=== PATIENT | female | born 1985 | race Caucasian/White ===

== ENCOUNTER → 2017-08-28 17:38 | Outpatient (REF) | payer BC, SELFPAY ==
[2017-08-28 18:16] LABS: Basophils % 0.6 % (0.1-2.0); Eosinophils % 0.4 % (0.1-12.0); Hematocrit 41.2 % (37.0-47.0); Hemoglobin 13.4 g/dL (12.2-16.2); Lymphocytes # 2.4 K/mm3 (0.7-4.5); Mean Corpuscular HGB Conc 32.5 g/dL (31.8-35.4); Mean Corpuscular Hemoglobin 28.9 pg (27.0-31.2); Mean Corpuscular Volume 88.9 fl (81-99); Mean Platelet Volume 7.3 fl (7.4-10.4); Monocytes # 0.3 K/mm3 (0.1-1.0); Monocytes % 4.8 % (1.7-9.3); Neutrophils % 58.2 % (37.0-80.0); Platelet Count 285 K/mm3 (142-424); Red Blood Count 4.64 M/mm3 (4.20-5.40); Red Cell Distribution Width 12.4 % (11.5-17.5); White Blood Count 6.8 K/mm3 (4.8-10.8)
== END ==
LOC: LAB 17:38
PROVIDERS: Visit Provider Internal Medicine
DX: L60.2 Onychogryphosis (principal)
CPT/HCPCS: 85025

== ENCOUNTER → 2018-07-06 14:26 | Outpatient (CLI) | payer BC, SELFPAY ==
--- NOTE | 2018-07-06 14:34 | CT_ITS ---
CT abdomen pelvis wo con CLINICAL INDICATION: Right flank pain ITS.REASON: PYELONEPHRITIS, MICRO HEMATURIA ORDERING PHYSICIAN: Frandy Manzanares PATIENT AGE: 32 years COMPARISON: 08/12/2011 TECHNIQUE: Axial images obtained with sagittal and coronal reformats. All CT scans at the facility use one or more dose reduction, viz: automated exposure control, ma/kV adjustment per patient size (including targeted exams where dose is matched to indication, i.e. head), or iterative reconstruction technique. PROCEDURE: Oral Contrast: None IV Contrast: None . FINDINGS: No acute finding in the lower chest. The liver, spleen, adrenal glands, and pancreas have an unremarkable unenhanced appearance. There are nonobstructing bilateral renal calculi with the largest stone on the right in the mid polar region at 4 mm and the larger stone on the left in the lower pole 3 mm. No ureteral calculi. No hydronephrosis. Nonspecific nonobstructive bowel gas pattern. No evidence of appendicitis or diverticulitis. No obvious pelvic mass or abnormal fluid collection. There are multiple unopacified bowel loops present within the abdomen/pelvis which could obscure or mimic pathology. No acute bony anomaly. There is mild to moderate lumbar scoliosis convex right measuring 21 degrees. A small bone island is present in the left femoral neck. IMPRESSION: 1. Nonobstructing bilateral nephrolithiasis. 2. Dextroscoliosis of the lumbar spine
== END ==
PROVIDERS: PCP Internal Medicine; Visit Provider Internal Medicine
DX: N12 Tubulo-interstitial nephritis, not specified as acute or chronic (principal); R31.29 Other microscopic hematuria
CPT/HCPCS: 74176

== ENCOUNTER → 2019-01-26 15:00 | Outpatient (CLI) | payer BC, SELFPAY ==
--- NOTE | 2019-01-26 15:06 | XR_ITS ---
XR ankle RT min 3V HISTORY: Posttraumatic pain, lateral pain ITS.REASON: RT ANKLE INJURY, ORDERING PHYSICIAN: Frandy Manzanares PATIENT AGE: 33 years Comparison: None FINDINGS: No fracture or dislocation. No lytic or blastic change. There is normal mineralization.. The joint spaces are well-preserved. No significant degenerative/arthritic changes. No erosive changes evident. IMPRESSION: Negative ankle, no acute finding
== END ==
PROVIDERS: PCP Internal Medicine; Visit Provider Internal Medicine
DX: M25.571 Pain in right ankle and joints of right foot (principal)
CPT/HCPCS: 73610

== ENCOUNTER → 2019-11-22 07:03 | Outpatient (CLI) | payer BC, SELFPAY ==
--- NOTE | 2019-11-22 07:08 | NM_ITS ---
PROCEDURE: NM THYROID IMAGE UPTAKE CLINICAL INDICATION: HYPERTHYROIDISM, THYROIDITIS COMPARISON: No exams were available for comparison TECHNIQUE: 336 microcuries I 123 was administered. FINDINGS: 6 hour uptake was calculated to be 10.5 percent and 24 hour uptake was calculated to be 20.8 percent. These values are within the normal range normal 6 hour uptake is taken to be 3-16 percent and normal 24 hour uptake is taken to be 10-35 percent. Subsequent images demonstrate slight diffuse increased intensity within the inferior right thyroid lobe. Consider correlation with thyroid ultrasound to entirely exclude a hyperfunctioning adenoma in the inferior right thyroid lobe. There is otherwise homogeneous tracer uptake with slight asymmetrical increased cephalo caudad dimension of right thyroid lobe. IMPRESSION: Normal uptake values. Slight increased intense tracer accumulation inferior right thyroid lobe. An underlying hyperfunctioning adenoma is not entirely excluded but felt to be less likely. Correlation with ultrasound is recommended. Dictated by: Oleksandr Roche 11/23/2019 08:53 Electronically signed by Oleksandr Roche in [facility] 11/23/2019 08:53
--- NOTE | 2019-11-22 08:15 | HMH.ITSHM ---
Current Home Medications as stated by this patient Lena Orozco or sales representative publications. []VITARIL METOPROLOL
== END ==
PROVIDERS: PCP Internal Medicine; Visit Provider Internal Medicine
DX: E05.90 Thyrotoxicosis, unspecified without thyrotoxic crisis or storm (principal); E06.9 Thyroiditis, unspecified
CPT/HCPCS: 78014; A9516

== ENCOUNTER 2020-05-03 10:30 | Emergency (ER) | payer BC, SELFPAY ==
[2020-05-03 10:36] VITALS: BP 152/98; PULSE 87; RESP 16; TEMP 36.6; O2SAT 98; BMI 16.9
--- NOTE | 2020-05-03 10:41 | CT_ITS ---
PROCEDURE: CT HEAD/BRAIN WO CON CLINICAL INDICATION: head injury Head injury with headache/pain, contusion, abrasion or hematoma COMPARISON: No exams were available for comparison TECHNIQUE: Axial images obtained. All CT scans at the facility use one or more dose reduction, viz: automated exposure control, ma/kV adjustment per patient size (including targeted exams where dose is matched to indication, i.e. head), or iterative reconstruction technique. FINDINGS: No midline shift, mass effect, intracranial hemorrhage, hydrocephalus, or extra-axial fluid collection is evident. There is mild soft tissue swelling in the left supraorbital region the calvarium has an unremarkable appearance. No mastoid effusion. No sinus air-fluid level. IMPRESSION: No acute intracranial finding Dictated by: Addison Lake MD 05/03/2020 11:19 Addison Lake MD in [facility] 05/03/2020 11:19
[2020-05-03 11:02] VITALS: BP 132/100; PULSE 68; O2SAT 100
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
[2020-05-03 12:08] VITALS: BP 132/90; PULSE 68; RESP 16; TEMP 36.6; O2SAT 100
== END 2020-05-03 12:10 | disposition home or self-care (01) ==
PROVIDERS: Emergency Provider Family Medicine; PCP Internal Medicine
DX: S01.81XA Laceration without foreign body of other part of head, initial encounter (principal); V86.55XA Driver of 3- or 4- wheeled all-terrain vehicle (ATV) injured in nontraffic accident, initial encounter; Y92.018 Other place in single-family (private) house as the place of occurrence of the external cause
CPT/HCPCS: 12001; 70450; 99283

== ENCOUNTER → 2021-05-22 09:46 | Outpatient (CLI) | payer BC, SELFPAY ==
[2021-05-22 10:06] LABS: Basophils # 0.1 K/mm3 (0-0.2); Basophils % 0.9 % (0.1-2.0); Eosinophils # 0.1 K/mm3 (0.0-0.4); Hematocrit 41.6 % (37.0-47.0); Hemoglobin 13.3 g/dL (12.2-16.2); Lymphocytes # 1.6 K/mm3 (0.7-4.5); Lymphocytes % 29.8 % (10-50); Mean Corpuscular HGB Conc 32.1 g/dL (31.8-35.4); Mean Corpuscular Volume 93.4 fl (81-99); Monocytes # 0.3 K/mm3 (0.1-1.0); Monocytes % 6.2 % (1.7-9.3); Neutrophils # 3.3 K/mm3 (1.8-7.8); Neutrophils % 62.1 % (37.0-80.0); Platelet Count 318 K/mm3 (142-424); Red Blood Count 4.45 M/mm3 (4.20-5.40); Red Cell Distribution Width 12.3 % (11.5-17.5); White Blood Count 5.3 K/mm3 (4.8-10.8)
--- NOTE | 2021-05-22 10:07 | ECG_ITS ---
APPROVED REPORT Exam: Resting ECG HR:55 bpm ECG Measurements Heart Rate 55 AXES SD 136 P 43 QRSd 86 QRS 80 QT 390 T 84 QTc 373 Conclusion Sinus bradycardia Incomplete RBBB Otherwise a normal ekg Electronically signed by : Frandy Manzanares MD 06/05/2021 16:07:14
[2021-05-22 10:20] LABS: Alanine Aminotransferase 14 U/L (12-78); Albumin Level 4.6 g/dl (3.5-5.0); Albumin/Globulin Ratio 1.6 (1.1-1.8); Alkaline Phosphatase 53 U/L (38-126); Anion Gap 11.1 mEq/L (5-15); Aspartate Amino Transferase 25 U/L (14-36); Blood Urea Nitrogen 11 mg/dl (7-17); Calcium 9.4 mg/dl (8.4-10.2); Carbon Dioxide 28 mmol/L (22.0-30.0); Chloride 104 mmol/L (98-107); Estimated Glomerular Filt Rate 114 ml/min (>60); GFR (African American) 138 ML/MIN (>60); Globulin 2.9 g/dL (1.3-3.2); Glucose 76 mg/dl (74-100); Potassium 4.1 mmoL/L (3.5-5.1); Sodium 139 mmol/L (136-145); Total Protein,Serum 7.5 g/dl (6.3-8.2)
[2021-05-22 10:35] LABS: Troponin I < 0.01 ng/ml (0.00-0.034)
[2021-05-22 10:39] LABS: T4 (Thyroxine) 7.9 ug/dl (5.53-11.0)
[2021-05-22 10:44] LABS: Free T4 (Free Thyroxine) 0.79 ng/dl (0.78-2.19)
[2021-05-22 10:53] LABS: Thyroid Stimulating Hormone 1.15 uIU/mL (0.465-4.68)
== END ==
PROVIDERS: Visit Provider Internal Medicine
DX: R07.9 Chest pain, unspecified (principal); R00.2 Palpitations; Z86.16 Personal history of COVID-19
CPT/HCPCS: 36415; 80053; 84436; 84439; 84443; 84484; 85025; 85378; 93005

== ENCOUNTER → 2021-06-10 07:54 | Outpatient (CLI) | payer BC, SELFPAY ==
--- NOTE | 2021-06-10 08:03 | CA_ITS ---
APPROVED REPORT EXAM: Comprehensive 2D, Doppler, and color-flow Echocardiogram Memorial Marker Designer: Bety Abel, RCS, RVS Ht: 5 ft 6 in Wt: 105lbs BSA: 1.52 BP: 126/78 mmHg Indications: CP, Palpitations 2D Dimensions Aortic Root 2.25 cm F: 2.7 - 3.3 LA Volume 25.80 mL Left Atrium 1.96 cm F: 2.7 - 3.8 LA Volume Index 16.97 mL/m2 (M/F) 16-34 LVOT 1.59 cm (M/F) 1.5-2.5 M-Mode Dimensions RVDd 2.07 cm (0.9-2.6) LA Diam 2.69 cm (1.9-4.0) LVDd 4.21 cm (3.5-5.7) Ao Diam 2.51 cm (2.0-3.7) IVSd 0.54 cm (0.6-1.1) PWd 0.59 cm (0.6-1.1) EPSs 0.16 cm EDV (Teich) 79.00 mL TAPSE 2.25 (<1.7) LV Diastology E Decel Time 207.00 (160-240 msec) E/A Ratio 1.83 MED E' 15.60 (< 7 cm/sec) MED A' 6.80 cm/s E'/MED E' Ratio 6.89 (>14) LAT E' 20.10 (<10 cm/sec) LAT A' 7.60 cm/s E/LAT E' Ratio 5.35 (>14) Aortic Valve LVOT Max 98.00 (70-110 cm/s) LVOT VTI 21.85 cm AoV Peak Esdras. 133.00 (50-130 cm/s) AO Peak GR. 7.10 mmHg AO Mean GR. 3.70 (<5 mmHg) AO VTI 27.84 (18-25 cm) SAVANNAH (VTI) 1.56 (2.5-4.5 cm2) Mitral Valve MV A Velocity 59.00 (40-130 cm/s) E/A Ratio 1.83 MV Decel. Time 207.00 (160-240 ms) Pulmonary Valve PV Peak Velocity 83.00 (50-150 cm/s) Tricuspid Valve TR P. Velocity 147.00 cm/s RAP Estimate 10.00 mmHg RVSP 18.60 mmHg Left Ventricle Left atrium is normal size, left ventricle is normal size, there is no concentric left ventricular hypertrophy, visually estimated ejection fraction 55% with no regional wall motion abnormality, diastolic parameters are within normal range. Right Ventricle Right atrium and right ventricle are normal size and contractility. Aortic Valve Aortic valve is grossly normal, there is no aortic stenosis or aortic insufficiency. Mitral Valve Mitral valve is grossly normal, there is trace mitral regurgitation. Tricuspid Valve Tricuspid grossly normal, there is no significant tricuspid regurgitation noted. Pulmonic Valve Pulmonic valve is poorly visualized. Great Vessels Aortic root is normal size. Inferior vena cava is normal size with normal inspiratory collapse. Pericardium No significant pericardial effusion noted. Conclusion 1. Normal left ventricular size, preserved left ventricular systolic function, visually estimated ejection fraction 55% with no regional wall motion abnormality, diastolic parameters are within normal range. 2. Trace mitral regurgitation. 3. No significant pericardial effusion noted. 4. Inferior vena cava is normal size with normal inspiratory collapse. Electronically signed by : Kelton Alcantara MD 06/10/2021 21:28:19
== END ==
PROVIDERS: PCP Internal Medicine; Visit Provider Internal Medicine
DX: R07.9 Chest pain, unspecified (principal); R00.2 Palpitations
CPT/HCPCS: 93306

== ENCOUNTER → 2021-09-10 22:52 | Outpatient (CLI) | payer BC, SELFPAY ==
[2021-09-10 23:12] LABS: Basophils # 0.1 K/mm3 (0-0.2); Basophils % 1.4 % (0.1-2.0); Eosinophils # 0.1 K/mm3 (0.0-0.4); Eosinophils % 1.3 % (0.1-12.0); Hematocrit 42.7 % (37.0-47.0); Hemoglobin 13.9 g/dL (12.2-16.2); Lymphocytes # 1.9 K/mm3 (0.7-4.5); Lymphocytes % 44.6 % (10-50); Mean Corpuscular HGB Conc 32.5 g/dL (31.8-35.4); Mean Corpuscular Hemoglobin 30.5 pg (27.0-31.2); Mean Corpuscular Volume 93.9 fl (81-99); Mean Platelet Volume 8.6 fl (7.4-10.4); Monocytes # 0.3 K/mm3 (0.1-1.0); Monocytes % 7.9 % (1.7-9.3); Neutrophils # 1.9 K/mm3 (1.8-7.8); Neutrophils % 44.8 % (37.0-80.0); Platelet Count 263 K/mm3 (142-424); Red Blood Count 4.55 M/mm3 (4.20-5.40); Red Cell Distribution Width 12.2 % (11.5-17.5); White Blood Count 4.2 K/mm3 (4.8-10.8)
== END ==
PROVIDERS: Visit Provider Internal Medicine
DX: J02.9 Acute pharyngitis, unspecified (principal); R53.83 Other fatigue
CPT/HCPCS: 85025

== ENCOUNTER → 2022-02-05 16:19 | Outpatient (CLI) | payer BC, SELFPAY ==
[2022-02-05 16:41] LABS: Basophils # 0.2 K/mm3 (0-0.2); Basophils % 2.8 % (0.1-2.0); Eosinophils # 0.1 K/mm3 (0.0-0.4); Eosinophils % 1.8 % (0.1-12.0); Hematocrit 40.2 % (37.0-47.0); Hemoglobin 13.6 g/dL (12.2-16.2); Lymphocytes # 1.7 K/mm3 (0.7-4.5); Lymphocytes % 30.7 % (10-50); Mean Corpuscular HGB Conc 33.8 g/dL (31.8-35.4); Mean Corpuscular Hemoglobin 30.1 pg (27.0-31.2); Mean Corpuscular Volume 89.2 fl (81-99); Mean Platelet Volume 7.7 fl (7.4-10.4); Monocytes # 0.5 K/mm3 (0.1-1.0); Monocytes % 7.9 % (1.7-9.3); Neutrophils # 3.2 K/mm3 (1.8-7.8); Neutrophils % 56.8 % (37.0-80.0); Platelet Count 270 K/mm3 (142-424); Red Cell Distribution Width 12.7 % (11.5-17.5); White Blood Count 5.7 K/mm3 (4.8-10.8)
[2022-02-05 17:18] LABS: Alanine Aminotransferase 16 U/L (12-78)
== END ==
PROVIDERS: PCP Internal Medicine; Visit Provider Internal Medicine
DX: B35.1 Tinea unguium (principal)
CPT/HCPCS: 84460; 85025

== ENCOUNTER 2024-01-08 19:27 | Emergency (ER) | payer OTHER, SELFPAY ==
--- NOTE | 2024-01-08 19:29 | ED_ITS ---
Discharge Plan Disposition Patient Disposition: Home, Self-Care Condition: Good Prescriptions Prescriptions: New amoxicillin 875 mg tablet 875 mg PO BID Qty: 20 0RF prednisone 20 mg tablet 20 mg PO BID Qty: 10 0RF No Action metoprolol tartrate 25 MG tablet 12.5 mg PO BID Qty: 30 0RF hydroxyzine pamoate 25 MG capsule 25 mg PO Q6H PRN (Reason: Anxiety) Qty: 30 0RF Referrals Follow up/Referrals: Frandy Manzanares MD [Primary Care Provider] - See instructions Clinical Impressions Clinical Impression: Otitis media Instructions Patient Instructions: DI for Otitis Media (Middle Ear Infection)-Child Discharge ED Provider: Adriana Cleveland [facility] HPI General Stated complaint: sore throat Time Seen by Provider: 01/08/24 20:04 History of Present Illness Provider Complaint: Sore throat, left ear pain X 1 week. No fever. Allergy meds have not helped. Onset (ago): week(s) (1) Relieving factors: none Exacerbating factors: none Associated symptoms: denies other symptoms Treatments prior to arrival: none Related Data Previous Rx's Medication Instructions Recorded hydroxyzine pamoate 25 mg capsule 25 mg PO Q6H PRN Anxiety #30 caps 11/09/19 metoprolol tartrate 25 mg tablet 12.5 mg (1/2 x 25 mg) PO BID #30 11/09/19 tabs amoxicillin 875 mg tablet 875 mg PO BID #20 tabs 01/08/24 prednisone 20 mg tablet 20 mg PO BID #10 tabs 01/08/24 Allergies Allergy/AdvReac Type Severity Reaction Status Date / Time No Known Allergies Allergy Verified 10/05/19 21:10 [facility] Disclaimer: The information contained in this section may have been updated after the patient was seen, as this information can be updated by other users. Social History Smoking Status: Unknown if ever smoked alcohol intake: never current occupational status: other Travel in the last 8 weeks: None household members: other housing: other ROS Obtained: Yes All systems reviewed & no additional complaints except as documented ENT Ears, Nose, Mouth, and Throat: Reports otalgia and Reports sore throat Physical Exam General General appearance: alert and in no apparent distress Head Head exam: atraumatic, normocephalic and normal inspection Eye Eye exam: Present normal appearance, PERRL and EOMI ENT ENT exam: Present normal exam, normal oropharynx, mucous membranes moist and normal external ear exam Expanded ENT Exam TM/Canal exam: Left TM: erythema Throat exam: Present tonsillar erythema and tonsillomegaly Neck Neck exam: Present normal inspection, full ROM and trachea midline; Absent meningismus or lymphadenopathy Chest Chest inspection: Present normal inspection and symmetric chest wall rise; Absent tenderness Respiratory Respiratory exam: Present normal lung sounds bilaterally; Absent respiratory distress Cardiovascular Cardiovascular exam: Present regular rate and normal rhythm; Absent JVD Abdominal Exam Abdominal exam: Present soft and normal bowel sounds; Absent distention, tenderness or guarding Extremities Exam Extremities exam: Present normal inspection, full ROM and normal capillary refill; Absent calf tenderness Back Exam Back exam: Present normal inspection; Absent tenderness Neurological Exam Neurological exam: Present alert and oriented X3 Psychiatric Psychiatric exam: Present normal affect and normal mood Skin Skin exam: Present warm, dry, intact and normal color Lymphatic Lymphatic Findings: no adenopathy Medical Decision Making Darion Inquiry Pt receiving controlled substance: No Lab Data Lab results reviewed: Yes I reviewed the patient's lab results.
[2024-01-08 19:55] VITALS: BP 133/95; PULSE 72; RESP 18; TEMP 36.7; O2SAT 100; BMI 18.8
[2024-01-08 20:19] LABS: UTC Strep Screen (Rapid) Negative (Negative)
[2024-01-08 20:25] VITALS: BP 133/95; PULSE 72; RESP 18; TEMP 36.7; O2SAT 100
== END 2024-01-08 20:20 | disposition home or self-care (01) ==
PROVIDERS: Emergency Provider Physician Assistant; PCP Internal Medicine
DX: H66.92 Otitis media, unspecified, left ear (principal); R07.0 Pain in throat
CPT/HCPCS: 87880; 96372; 99204; 99212; G0463

== ENCOUNTER 2024-06-05 11:42 | Emergency (ER) | payer OTHER, SELFPAY ==
[2024-06-05 12:20] VITALS: BP 125/86; PULSE 115; RESP 20; TEMP 37.1; O2SAT 98; BMI 17.9
--- NOTE | 2024-06-05 12:37 | EXP.UTC ---
Discharge Plan Disposition Patient Disposition: Home, Self-Care Condition: Good Prescriptions Prescriptions: New [id number]-[id number]-MI [Bromfed DM] 2-30-10 mg/5 mL syrup 10 ml PO Q6H PRN (Reason: cold symptoms) Qty: 200 0RF ondansetron 4 mg tablet,disintegrating 4 mg PO Q8H PRN (Reason: nausea and vomiting) Qty: 10 0RF Referrals Follow up/Referrals: Frandy Manzanares MD [Primary Care Provider] - See instructions Activity Restrictions/Add. Instructions Additional Instructions/Restrictions: *Monitor Temp, Over the counter Motrin or Tylenol as directed/as needed Tylenol every 4 hours and Motrin every 6 hours (as long as your family doctor has told you that you can take it) for fever or pain. and straight to ER if unable to lower temp less than 101.0 after medication given *Warm salt water gargles may help to soothe the throat *Throat Lozenges? *Warm fluids like tea with honey may help to soothe the throat? *Sleep elevated *Humidifier/Vaporizer Drink extra fluids with and between meals. If you have difficulty drinking, try very small amounts of water or suck on ice chips. ? Avoid fruit juices, as these do not replace minerals and can actually increase diarrhea. ? Children and adults can use sports drinks to replenish electrolytes. Younger children and infants should use products formulated for children, like oral rehydration solutions. ? Eat food in small amounts and let your stomach recover. ? Get lots of rest. You may feel tired or weak. ? No greasy or fried foods for the next 24-48 hours BRAT diet Bananas Rice Apples and [place] ? Make sure to drink plenty of liquids ? Return if needed ? Straight to ER if any life threatening symptoms ? Zofran as prescribed ? You was given an outpatient order for diarrhea panel, please collect specimen and bring back to outpatient lab then call back to the [facility] or follow up with family doctor for results Follow up IMMEDIATELY for new or worsening symptoms or no Noticeable improvement over the next 48-72 hours. 911 for difficulty breathing or swallowing You were tested for today for Upper Respiratory Panel with COVID19 your test result should be back in the next 24hours, you may check your results on the [facility] [employer] [facility] Portal Clinical Impressions Clinical Impression: Acute viral syndrome Instructions Patient Instructions: DI for Viral Syndrome, Diarrhea, DI for Nausea -- Adult Print Language Print Language: Prydeinig Discharge ED Provider: Kamla Sy [facility] HPI General Stated complaint: headache, fever, bodyaches Mode of Arrival: Ambulatory Source of Information: Patient Limitations: No Limitations Time Seen by Provider: 06/05/24 12:37 Description of Symptoms (Recalled from Triage Doc. by RN): PATIENT C/O FEVER, HEADACHE, VOMITING, DIARRHEA, BODY ACHES, AND CHEST CONGESTION SINCE THURSDAY EVENING HEENT Symptoms (Recalled from RN notes): Yes Resp Symptoms (Recalled from RN notes): No Skin Symptoms (Recalled from RN notes): No MS Symptoms (Recalled from RN notes): No Functional Status (Recalled from RN notes): WNL History of Present Illness Provider Complaint: Patient states that she started feeling bad Thursday with fever, chills, body aches, headache, diarrhea and dry cough States fever was the highest on the first night but since then has been low grade around 100.0 States today she is having some chest congestion and still feeling achy all over so she came in to get checked Related Data Previous Rx's ?Medication ?Instructions ?Recorded tzxklwuqekuildv-zhxrzrksucqpyfr-YI 10 ml PO Q6H PRN cold symptoms 06/05/24 2 mg-30 mg-10 mg/5 mL oral syrup #200 mL (Bromfed DM) ondansetron 4 mg disintegrating 4 mg PO Q8H PRN nausea and 06/05/24 tablet vomiting #10 tabs Allergies Allergy/AdvReac Type Severity Reaction Status Date / Time No Known Allergies Allergy Verified 01/08/24 20:12 Worker's Comp Is this a Worker's Comp case?: No [facility] Disclaimer: The information contained in this section may have been updated after the patient was seen, as this information can be updated by other users. Medical History (Updated 06/05/24 @ 12:43 by Kamla Sy APRN) Urinary tract infection Social History Smoking Status: Unknown if ever smoked alcohol intake: never current occupational status: other Travel in the last 8 weeks: None household members: other housing: other ROS Obtained: Yes All systems reviewed & no additional complaints except as documented and Yes Systems reviewed as appropriate & no additional complaints except as documented Constitutional Constitutional: Reports system reviewed and no additional complaints, except as documented, Reports as per HPI, Reports body ache, Reports chills, Reports fever(s) and Reports headache(s) ENT Ears, Nose, Mouth, and Throat: Reports system reviewed and no additional complaints, except as documented, Reports as per HPI, Reports headache(s), Reports nasal congestion and Reports nasal discharge Cardiovascular Cardiovascular: Reports system reviewed and no additional complaints, except as documented, Reports as per HPI, Denies chest pain, Denies lightheadedness and Denies palpitations Respiratory Respiratory: Reports system reviewed and no additional complaints, except as documented, Reports as per HPI, Reports chest congestion and Reports cough Gastrointestinal Gastrointestingal: Reports system reviewed and no additional complaints, except as documented, as per HPI, diarrhea and nausea; Denies abdominal pain, cramping or vomiting Genitourinary Female Genitourinary: Reports system reviewed and no additional complaints, except as documented and Reports as per HPI Neurologic Neurologic: Reports headache(s) Endocrine Endocrine: Denies palpitations Physical Exam General General appearance: alert and in no apparent distress ENT ENT exam: Present mucous membranes moist Expanded ENT Exam Nose exam: Absent sinus tenderness Throat exam: Present normal inspection Chest Chest inspection: Present normal inspection and symmetric chest wall rise Respiratory Respiratory exam: Present normal lung sounds bilaterally; Absent respiratory distress or wheezes Cardiovascular Cardiovascular exam: Present regular rate, normal rhythm and tachycardia Abdominal Exam Abdominal exam: Present soft and normal bowel sounds; Absent distention or tenderness Neurological Exam Neurological exam: Present alert, oriented X3 and normal gait Medical Decision Making Medical Records Screening: Per USPSTF and CDC recommendations, given the prevalence of disease in our region, it is our hospital?s policy to screen for HIV and viral Hepatitis for all patients aged 18 and over and those with ongoing risk factors. Darion Inquiry Pt receiving controlled substance: No Darion was queried for this patient: No Vital Signs: 06/05/24 12:20 Temperature 98.8 F Temperature Source Oral Pulse Rate [Left Brachial] 115 H Respiratory Rate 20 Blood Pressure [Left Arm] 125/86 Blood Pressure Mean [Left Arm] 99 Blood Pressure Source [Left Arm] Automatic Cuff Blood Pressure Position [Left Arm] Sitting 02 Sat by Pulse Oximetry 98 Oxygen Delivery Method Room Air Lab Data Lab results reviewed: Yes I reviewed the patient's lab results.
[2024-06-05 12:46] LABS: UTC Influenza A Antigen Negative (Negative); UTC Influenza B Antigen Negative (Negative)
[2024-06-05 12:49] VITALS: BP 125/86; PULSE 115; RESP 20; TEMP 37.1; O2SAT 98
[2024-06-05 13:02] LABS: Adenovirus,PCR Not Detected (NotDetected); Bordetella Pertussis Not Detected (NotDetected); Chlamydophila Pneumoniae, PCR Not Detected (NotDetected); Coronavirus 19, PCR Not Detected (NotDetected); Coronavirus 229E Not Detected (NotDetected); Coronavirus NL63 Not Detected (NotDetected); Coronavirus OC43 Not Detected (NotDetected); Coronovirus HKU1,PCR Not Detected (NotDetected); Human Metapneumovirus Not Detected (NotDetected); Influenza A, PCR Not Detected (NotDetected); Influenza AH1, 2009 Not Detected (NotDetected); Influenza AH1, PCR Not Detected (NotDetected); Influenza AH3,PCR Not Detected (NotDetected); Influenza B, PCR Not Detected (NotDetected); Mycoplasma Pneumoniae, PCR Not Detected (NotDetected); Parainfluenza 1, PCR Not Detected (NotDetected); Parainfluenza 2, PCR Not Detected (NotDetected); Parainfluenza 3, PCR Not Detected (NotDetected); Parainfluenza 4, PCR Not Detected (NotDetected); Respiratory Syncytial Virus Not Detected (NotDetected); Rhinovirus/Enterovirus Not Detected (NotDetected)
== END 2024-06-05 12:54 | disposition home or self-care (01) ==
PROVIDERS: Emergency Provider Nurse Practitioner; PCP Internal Medicine
DX: B34.9 Viral infection, unspecified (principal)
CPT/HCPCS: 87265; 87486; 87581; 87632; 87635; 87804; 99213; G0381

== ENCOUNTER → 2024-06-06 14:43 | Outpatient (REF) | payer OTHER, SELFPAY ==
[2024-06-06 14:49] LABS: Adenovirus F 40/41, stool Not Detected (NotDetected); Astrovirus Not Detected (NotDetected); Clostridium Difficile A/B, PCR Not Detected (NotDetected); Cryptosporidium Not Detected (NotDetected); Cyclospora Cayetanesis Not Detected (NotDetected); Entamoeba histolytica Not Detected (NotDetected); Enteroaggregative E coli Not Detected (NotDetected); Enteropathogenic E coli Not Detected (NotDetected); Enterotoxigenic E coli Not Detected (NotDetected); Giardia lamblia Not Detected (NotDetected); Norovirus Not Detected (NotDetected); Plesimonas Shigalloides, PCR Not Detected (NotDetected); Rotavirus A Not Detected (NotDetected); Salmonella, PCR Not Detected (NotDetected); Sapovirus Not Detected (NotDetected); Shiga-like toxin E coli Not Detected (NotDetected); Shigella Enterovasive E coli Not Detected (NotDetected); Vibrio Cholerae Not Detected (NotDetected); Vibrio, PCR Not Detected (NotDetected); Yersinia Entercolitica, PCR Not Detected (NotDetected)
[2024-06-06 19:05] LABS: Campylobacter Detected (NotDetected)
--- NOTE | 2024-06-06 19:07 | PC.NURSE ---
Patricia VELAZQUEZ APRN NOTIFIED OF PATIENT'S DIARRHEA PANEL RESULTS AT THIS TIME
--- NOTE | 2024-06-06 19:37 | PC.NURSE ---
PATIENT NOTIFIED OF DIARRHEA PANEL RESULTS AT THIS TIME. PATIENT ADVISED TO INCREASE FLUIDS AND TO FOLLOW-UP WITH PCP IF DIARRHEA PERSISTS LONGER THAN 1 WEEK. PATIENT VERBALIZED UNDERSTANDING
== END ==
LOC: LAB 14:43
PROVIDERS: Visit Provider Nurse Practitioner
DX: R19.7 Diarrhea, unspecified (principal)
CPT/HCPCS: 87506

== ENCOUNTER 2024-08-09 12:48 | Emergency (ER) | payer OTHER, SELFPAY ==
[2024-08-09 13:10] VITALS: BP 129/86; PULSE 71; RESP 17; TEMP 36.7; O2SAT 100; BMI 18.8
--- NOTE | 2024-08-09 13:19 | ED_ITS ---
Discharge Plan Disposition Patient Disposition: Home, Self-Care Condition: Good Referrals Follow up/Referrals: Frandy Manzanares MD [Primary Care Provider] - See instructions Activity Restrictions/Add. Instructions Additional Instructions/Restrictions: *Monitor Temp, Over the counter Motrin or Tylenol as directed/as needed Tylenol every 4 hours and Motrin every 6 hours (as long as your family doctor has told you that you can take it) for fever or pain. and straight to ER if unable to lower temp less than 101.0 after medication given *Warm salt water gargles may help to soothe the throat *Throat Lozenges? *Warm fluids like tea with honey may help to soothe the throat? *Sleep elevated *Humidifier/Vaporizer Your throat swab was sent for culture. Those results are typically sent to your primary care. Be sure to follow up in 2-3 days with your family doctor/primary care physician if no improvement so they can review those result and treat if necessary. If you don?t have a primary care doctor, I recommend you get one but in the mean time, you will have to return to a walk in clinic Follow up IMMEDIATELY for new or worsening symptoms or no Noticeable improvement over the next 48-72 hours. 911 for difficulty breathing or swallowi ng Clinical Impressions Clinical Impression: Sore throat (viral) Instructions Patient Instructions: Sore Throat Print Language Print Language: Sinhala Discharge ED Provider: Kamla Sy [facility] [place] General Stated complaint: sore throat Mode of Arrival: Ambulatory Source of Information: Patient Limitations: No Limitations Time Seen by Provider: 08/09/24 13:19 Description of Symptoms (Recalled from Triage Doc. by RN): PATIENT C/O SORE THROAT AND LETHARGY SINCE YESTERDAY HEENT Symptoms (Recalled from RN notes): Yes Resp Symptoms (Recalled from RN notes): No Skin Symptoms (Recalled from RN notes): No MS Symptoms (Recalled from RN notes): No Functional Status (Recalled from RN notes): WNL History of Present Illness Provider Complaint: Patient states that she started yesterday with sore throat, feeling fatigued and drained States that she wanted to get checked with the holidays coming worried she may have strep throat Related Data Allergies Allergy/AdvReac Type Severity Reaction Status Date / Time No Known Allergies Allergy Verified 06/06/24 15:05 Worker's Comp Is this a Worker's Comp case?: No [facility] Disclaimer: The information contained in this section may have been updated after the patient was seen, as this information can be updated by other users. Medical History Urinary tract infection Social History Smoking Status: Unknown if ever smoked alcohol intake: never current occupational status: other Travel in the last 8 weeks: None household members: other housing: other Have you lived/traveled outside US in past 30 days?: No Contact w/someone who lives/traveled outside US past 30 days?: No Exposure to someone with infectious disease in past 14 days?: No Do you have a fever (greater than 100.4 F or 38 C)?: No Have you tested positive for COVID-19: No Exposed to someone with COVID-19 in past 14 days?: No Do you have a sore throat?: Yes Do you have a cough?: No Do you have any weakness?: No Do you have any diarrhea?: No Are you experiencing any unusual bleeding?: No Do you have any muscle aches/pain?: No Do you have any abdominal pain?: No Are you experiencing loss of taste or smell?: No ROS Obtained: Yes All systems reviewed & no additional complaints except as documented and Yes Systems reviewed as appropriate & no additional complaints except as documented Constitutional Constitutional: Reports system reviewed and no additional complaints, except as documented, Reports as per HPI, Denies body ache, Denies chills, Reports fatigue, Denies fever(s) and Reports lethargy ENT Ears, Nose, Mouth, and Throat: Reports system reviewed and no additional complaints, except as documented, Reports as per HPI, Denies nasal congestion, Denies nasal discharge and Reports sore throat Cardiovascular Cardiovascular: Reports system reviewed and no additional complaints, except as documented and Reports as per HPI Respiratory Respiratory: Reports system reviewed and no additional complaints, except as documented and Reports as per HPI Endocrine Endocrine: Reports fatigue Physical Exam General General appearance: alert and in no apparent distress ENT ENT exam: Present mucous membranes moist Expanded ENT Exam Nose exam: Absent sinus tenderness Throat exam: Present other (Mild pharyngeal erythema noted ) Respiratory Respiratory exam: Present normal lung sounds bilaterally; Absent respiratory distress or wheezes Cardiovascular Cardiovascular exam: Present regular rate, normal rhythm and normal heart sounds Abdominal Exam Abdominal exam: Present soft and normal bowel sounds; Absent distention or tenderness Neurological Exam Neurological exam: Present alert, oriented X3 and normal gait Medical Decision Making Medical Records Screening: Per USPSTF and CDC recommendations, given the prevalence of disease in our region, it is our hospital?s policy to screen for HIV and viral Hepatitis for all patients aged 18 and over and those with ongoing risk factors. Dar[place] Inquiry Pt receiving controlled substance: No [place] was queried for this patient: No Vital Signs: 08/09/24 13:10 Temperature 98.1 F Temperature Source Oral Pulse Rate [Left Brachial] 71 Respiratory Rate 17 Blood Pressure [Left Arm] 129/86 Blood Pressure Mean [Left Arm] 100 Blood Pressure Source [Left Arm] Automatic Cuff Blood Pressure Position [Left Arm] Sitting 02 Sat by Pulse Oximetry 100 Oxygen Delivery Method Room Air Lab Data Lab results reviewed: Yes I reviewed the patient's lab results.
[2024-08-09 13:30] VITALS: BP 129/86; PULSE 71; RESP 17; TEMP 36.7; O2SAT 100
[2024-08-09 13:31] LABS: UTC Strep Screen (Rapid) Negative (Negative)
== END 2024-08-09 13:33 | disposition home or self-care (01) ==
PROVIDERS: Emergency Provider Nurse Practitioner; PCP Internal Medicine
DX: J02.9 Acute pharyngitis, unspecified (principal); R53.83 Other fatigue
CPT/HCPCS: 87880; 99212; G0381

== ENCOUNTER 2025-01-05 12:17 | Outpatient (CLI) | payer OTHER, SELFPAY ==
[2025-01-05 11:06] LABS: Basophils # 0.1 K/mm3 (0-0.2); Basophils % 0.9 % (0.1-2.0); Eosinophils # 0.1 Kmm3 (0.0-0.4); Eosinophils % 1.1 % (0.1-12.0); Hemoglobin 13.8 g/dL (12.2-16.2); Immature Granulocytes # 0.02 10^3uL; Immature Granulocytes % 0.4 %; Lymphocytes # 1.8 K/mm3 (0.7-4.5); Lymphocytes % 32.3 % (10-50); Mean Corpuscular HGB Conc 32.9 g/dL (31.8-35.4); Mean Corpuscular Hemoglobin 28.9 pg (27.0-31.2); Mean Corpuscular Volume 88.1 fl (81-99); Mean Platelet Volume 9.2 fl (7.4-10.4); Monocytes # 0.6 K/mm3 (0.1-1.0); Neutrophils % 54.3 % (37.0-80.0); Nucleated Red Blood Cells # 0 10^3/uL; Nucleated Red Blood Cells % 0 %; Platelet Count 290 K/mm3 (142-424); Red Blood Count 4.77 M/mm3 (4.20-5.40); Red Cell Distribution Width-SD 38.5 fL; White Blood Count 5.5 K/mm3 (4.8-10.8)
== END 2025-01-05 23:59 | disposition home or self-care (01) ==
LOC: LAB.DROPOF 12:17
PROVIDERS: PCP Internal Medicine; Visit Provider Internal Medicine
DX: R10.2 Pelvic and perineal pain (principal); R10.32 Left lower quadrant pain; R10.31 Right lower quadrant pain
CPT/HCPCS: 85025

== ENCOUNTER 2025-01-05 13:45 | Outpatient (CLI) | payer OTHER, SELFPAY ==
--- NOTE | 2025-01-05 14:00 | CT_ITS ---
FINAL REPORT TECHNIQUE: Axial images through the abdomen and pelvis were performed without contrast. This study was performed with techniques to keep radiation doses as low as reasonably achievable, (ALARA). Individualized dose reduction techniques using automated exposure control or adjustment of mA and/or kV according to the patient's size were employed. CLINICAL HISTORY: Diffuse lower abdominal pain since Thursday FINDINGS: Abdomen: The lung bases are clear. The liver parenchyma is homogeneous. The gallbladder is present. The pancreas and adrenals are unremarkable. There are multiple small bilateral nonobstructing stones measuring up to 3 mm. There are calcified granulomas in the spleen. Pelvis: The appendix is normal. The urinary bladder is incompletely distended. Uterus is present, lies eccentric to the left. There is a 25 degree thoracolumbar scoliosis convex to the right. There is no pelvic mass or inflammation. IMPRESSION: Bilateral nephrolithiasis. Reviewed, Interpreted and Dictated by Reinier Márquez MD Transcribed by Jennie Carbajal Authenticated and . [facility]
== END 2025-01-05 23:59 | disposition home or self-care (01) ==
LOC: RAD 13:46
PROVIDERS: PCP Internal Medicine; Visit Provider Internal Medicine
DX: N20.0 Calculus of kidney (principal); M41.85 Other forms of scoliosis, thoracolumbar region; D73.89 Other diseases of spleen
CPT/HCPCS: 74176

== ENCOUNTER 2025-06-14 14:18 | Outpatient (CLI) | payer OTHER, SELFPAY ==
--- NOTE | 2025-06-14 14:22 | XR_ITS ---
FINAL REPORT CLINICAL HISTORY: Hemoptysis, bronchitis..cough since thursday COMPARISON: None FINDINGS: PA and lateral views of the chest were obtained. No acute pulmonary density is evident. There is no evidence of effusion or other pleural disease. The mediastinum has a normal appearance. There is moderate S shaped scoliosis of the thoracolumbar spine. The cardiac silhouette is unremarkable. IMPRESSION: Unremarkable chest exam. Reviewed, Interpreted and Dictated by Patricia Jennings MD Transcribed by Janie Hunter Authenticated and [facility]
--- OUTSIDE RECORDS SUMMARY | 2025-06-14 15:10 | XMS_ITS | Encounter Summary ---
Author Organization [facility] Address [address] [place] [address] Care Team Providers Care Public Works Director Name Role Phone Frandy Manzanares MD Primary Care Provider [phone] Encounter Details Date Type Department Care Team (Late st Contact Info) Description 03/28/2025 Results Follow-Up [facility] [address] [place] [address] Rebecca Watson, SLOT FLOORMAN [address] [facility] [address] [place] [address] Social History Tobacco Use Types Packs/Day Years Used Date Smoking Tobacco: Never Smokeless Tobacco: Never Alcohol Use Standard Drinks/Week Comments Not Currently 0 (1 standard drink = 0.6 oz pur e alcohol) Couple drinks a month Overall Financial Resource Strain (CARDIA) Answe r Date Recorded How hard is it for you to pa y for the very basics like food, housing, medical care, and heating? Not hard at all 06/28/2020 [facility] Occupat ional Health - Occupational Stress Questionnaire Answer Date Recorded Do you feel stress - tense, restless, nervous, or anxious, or unable to sleep at night because your mind is troubled all the time - these days? Not at all 06/28/2020 Exercise Vital Sign Answer Date Recorde d On average, how many days pe r week do you engage in moderate to strenuous exercise (like a brisk walk)? 0 days 06/28/2020 On average, how many minutes do you engage in exercise at this level? 0 min 06/28/2020 Hunger Vital Sign Answer Date Recorded Worried About Running Out of Food in the Last Ye ar Not on file 06/28/2020 Within the past 12 months, t he food you bought just didn't last and you didn't have money to get more. Never true 06/28/2020 PRAPARE - Transportation Answer Date Re corded In the past 12 months, has l ack of transportation kept you from medical appointments or from getting medications? No 12/2019 In the past 12 months, has l ack of transportation kept you from meetings, work, or from getting things needed for daily living? 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
--- OUTSIDE RECORDS SUMMARY | 2025-06-14 15:10 | XMS_ITS | Clinical Summary ---
Author Organization [facility] Address [address] [id number] Care Team Providers Care General Internist And Physician Leader Name Role Phone Frandy Manzanares MD Primary Care Provider [phone] Allergies No known active allergies Medications fluconazole (DIFLUCAN) 150 MG tablet Take 1 tablet by mouth As Needed (yeast). Take one tablet now and repeat in 3 days 2 tablet 03/28/2025 Active Active Problems No known active problems Encounters Date Type Department Care Team Description 03/28/2025 Results Follow-Up [facility] [address] [place] [address] Rebecca Watson APRN 03/17/2025 10:00 AM EDT Office Visit [facility] [address] [place] [address] Rebecca Watson, OVER HAULER HELPER Pap test, as part of routine gynecological examination (Primary Dx); Encounter for screening mammogram for malignant neoplasm of breast; Women's annual routine gynecological examination 03/17/2025 Travel from Last 3 Months Family History Medical History Relation Name Comments No Known Problems Other FAMILY Breast cancer Neg Hx Colon cancer Neg Hx Ovarian cancer Neg Hx Uterine cancer Neg Hx Relation Name Status Comments Other FAMILY Social History Tobacco Use Types Packs/Day Years Used Date Smoking Tobacco: Never Smokeless Tobacco: Never Tobacco Cessation:Counseling Given: Not Answered Alcohol Use Standard Drinks/Week Comments Not Currently 0 (1 standard drink = 0.6 oz pur e alcohol) Couple drinks a month Overall Financial Resource Strain (CARDIA) Answe r Date Recorded How hard is it for you to pa y for the very basics like food, housing, medical care, and heating? Not hard at all 06/28/2020 [facility] [place] of Occupat ional Health - Occupational Stress [...] file Not on file Not on file Last Filed Vital Signs Vital Sign Reading Time Taken Comments Blood Pressure 110/80 03/17/2025 9:54 AM EDT Pulse - - Temperature 36.7 C (98.1 F) 06/28/2020 1:47 PM EST Respiratory Rate - - Oxygen Saturation - - Inhaled Oxygen Concentration - - Weight 54 kg (119 lb) 03/17/2025 9:54 AM EDT Height 167.6 cm (5' 5.98 ) 03/17/2025 9:54 AM ED T Body Mass Index 19.22 03/17/2025 9:54 AM EDT Plan of Treatment Health Maintenance Due Date Last Done Comments TDAP/TD VACCINES (1 - Tdap) 2004 HEPATITIS C SCREENING 05/31/2020 ANNUAL PHYSICAL 06/28/2021 06/28/2020 INFLUENZA VACCINE 03/24/2025 Annual Gynecologic Pelvic an d Breast Exam 03/18/2026 03/17/2025 PAP SMEAR 03/17/2028 03/17/2025, 06/03/2022, 07/03/2020 Pneumococcal Vaccine 0-49 Aged Out No longer eligible based on patient's age to complete this topic Procedures Procedure Name Priority Date/Time Associated Diagnosis Comments LIQUID-BASED PAP SMEAR WITH HPV GENOTYPING REGARDLESS OF INTERPRETATION, [facility] ([facility]) Routine 03/17/2025 11:49 AM EDT Pap test, as part of routine gynecological examination from Last 3 Months Results * LIQUID-BASED PAP SMEAR WITH HPV GENOTYPING REGARDLESS OF INTERPRETATION (LINDA,COR,MAD) (03/17/2025 11:49 AM EDT) Reference Lab Report FINAL C [facility] DEVELOPER CYTOLOGY REPORT ---- DIAGNOSIS: Negative for intraepithelial lesion or malignancy Multiple factors can influence accuracy of Pap tests; therefore, screening at regular intervals is necessary for early cancer detection. C-Comments FUNGAL ORGANISMS MORPHOLOGICALLY CONSISTENT WITH CIARRA SPECIES ARE PRESENT. ---- Adequacy SATISFACTORY FOR EVALUATION Transformation zone is present. Source CERVICAL/ENDOCERVI TYREL LMP None provided CLINICAL HISTORY: Routine The pap smear is a screening test with limited sensitivity, and false negative tests results can occur. ThinPrep Pap imagined by [employer]. Screened by ISA LAU (AS[facility]) Aptima HPV: Negative The Aptima HPV assay is an in vitro nucleic acid amplification test for the qualitative detection of E6/E7 viral messenger RNA from 14 high risk types of HPV in cervical specimens. The high risk HPV types detected include: 16, 18, 31, 33, 35, 39, 45, 51, 52, 56, 58, 59, 66 68 03/28/2025 12:38 PM EDT [facility] ThinPrep Vial Cervix uteri structure / Unknown Collection / Unknown 03/17/2025 11:49 AM EDT 03/17/2025 11:50 AM EDT Rebecca Haq Shirley OVER HAULER HELPER PATHOLOGY/CYTOLOGY ORDERA BLES Final Result [facility]
[address] [place] [address], from Last 3 Months Insurance [facility] Care Teams General Internist And Physician Leader Relationship Specialty Start Date End Date Frandy Manzanares MD [address] [facility] [address] [place] [address] PCP - General Internal Medicine 06/28/20
--- OUTSIDE RECORDS SUMMARY | 2025-06-14 15:11 | XMS_ITS | Data Portability ---
Author Organization [facility] KEN Munguia [place] Address [address] [place] [address] Care Team Providers Care Electrical Maintenance Technician Name Role Phone PADMINI GALLEGOS Primary Care Provider [phone] Assessment No assessment recorded. Plan of Treatment Reminders Order Date Submit Date Provider Last Modified By Organization Details Last Modified Time Details Appointments None record ed. Lab None record ed. Referral None record ed. Procedures None record ed. Surgeries None record ed. Imaging None record ed. Medication Orders None record ed. Patient TargetsNo targets recorded. Patient Instructions Encounter Date Encounter Id Patient Instructions Last Modified By Organization Details Last Modified Time 01/24/2019 [id number] 1. Taper allergy injections to every 3 weeks 2. Zatador eyedrops recommended as needed 3. Continue using Mucinex D as needed 4. Use otc Nasacort Nasal spray and oral anthistamine as needed 5. F/u in November 2019 - [email or web address] Not available 01/24/2019 12:32:45 Reason for Referral None Reported. Problems Name Problem SNOMED Code Status Onset Date Resolution Date Notes Provider Name and Address Organization Details Recorded Time Allergic rhinitis caused by pollen 65296975 Active 2014 From Automated Load;Provi ray: Leah Dallas;Stat us: Active Not Available [facility] 6 07:40:37 Nasal congestio n 96467589 Active 2014 From Automated Load;Provi ray: Leah Dallas;Stat us: Active Not Available [facility] 6 07:40:37 Deviated nasal septum 332201555 Active 2014 From Automated Load;Provi ray: Leah Dallas;Stat us: Active Not Available [facility] 6 07:40:37 Hypertrop hy of nasal turbinate s 71192782 Active 2014 From Automated Load;Provi ray: Leah Dallas;Stat us: Active Not Available [facility] 6 07:40:37 Urinary tract infectiou s disease 13707886 Active 2015 From Automated Load;Provi ray: Sebas Manzo;Statu s: Active Not Available [facility] 6 07:40:37 Problem Notes None recorded. Procedures Surgical History Date Name Laterality Status Provider Name and Address Organization Details Recorded Time 9 Allergy Injection completed Arianna Minix [facility] 03/21/2019 11:16:43 9 Allergy Injection completed Ioana Celena [facility] 03/02/2019 15:30:37 9 Allergy Injection completed Raejean Perraut [facility] 01/24/2019 10:59:16 9 Allergy Injection completed Raejean Perraut [facility] 12/31/2018 15:22:09 9 Vial Preparation completed Arianna Minix [facility] 12/28/2018 11:53:42 9 Allergy Injection completed ejean Perraut [facility] 12/17/2018 12:36:17 9 Allergy Injection completed Raejean Perraut [facility] 11/26/2018 16:21:23 9 Allergy Injection completed Raejean Perraut [facility] 10/21/2018 14:12:27 9 Allergy Injection completed Raejean Perraut [facility] 10/08/2018 14:50:45 9 Allergy Injection completed Arianna Minix [facility] 09/22/2018 12:04:02 9 Allergy Injection completed Arianna Minix [facility] 09/08/2018 12:09:45 9 Allergy Injection completed Ioana Celena [facility] 08/25/2018 13:13:50 8 Allergy Injection completed Raejean Perraut [facility] 08/13/2018 12:32:12 8 Allergy Injection completed Raejean Perraut [facility] 08/02/2018 12:11:18 8 Allergy Injection completed Ioana Celena [facility] 07/19/2018 12:34:26 8 Allergy Injection completed Ioana Celena [facility] 07/05/2018 12:38:22 8 Allergy Injection completed Arianna Minix [facility] 06/21/2018 15:02:12 8 Allergy Injection completed Ioana Celena [facility] 06/10/2018 08:44:52 8 Vial Preparation completed Ioana Celena [facility] 06/08/2018 15:15:25 8 Allergy Injection completed Arianna Minix [facility] 05/26/2018 14:01:45 8 Allergy Injection completed Arianna Minix [facility] 05/12/2018 14:23:10 8 Allergy Injection completed Ioana Celena [facility] 04/28/2018 15:20:01 8 Allergy Injection completed Arianna Minix [facility] 04/16/2018 12:29:49 8 Allergy Injection completed Arianna Minix [facility] 04/02/2018 10:14:17 8 Allergy Injection completed Raejean Perraut [facility] 03/19/2018 12:29:58 8 Allergy Injection completed Arianna Minix [facility] 03/01/2018 12:21:22 8 Allergy Injection completed Raejean Perraut [facility] 02/11/2018 12:47:57 8 Allergy Injection completed Arianna Minix [facility] 01/28/2018 13:10:59 8 Allergy Injection completed Arianna Minix [facility] 01/14/2018 13:08:07 8 Allergy Injection completed Ioana Celena [facility] 01/01/2018 16:06:42 8 Allergy Injection completed Raejean Perraut [facility] 12/22/2017 12:25:38 8 Allergy Injection completed Arianna Minix [facility] 12/10/2017 12:29:06 8 Vial Preparation completed Ioana Celena [facility] 12/08/2017 12:02:14 8 Allergy Injection completed Raejean Perraut [facility] 12/03/2017 12:26:25 8 Allergy Injection completed Raejean Perraut [facility] 11/26/2017 12:12:04 8 Allergy Injection completed Airanna Minix [facility] 11/19/2017 13:04:22 8 Allergy Injection completed Ioana Celena [facility] 11/11/2017 12:07:34 8 Allergy Injection completed Raejean Perraut [facility] 11/05/2017 16:14:13 7 Allergy Injection completed Ioana Celena [facility] 06/10/2017 11:30:01 7 Vial Preparation completed Ioana Celena [facility] 06/09/2017 14:38:06 7 Allergy Injection completed Raejean Perraut [facility] 04/24/2017 12:46:44 7 Allergy Injection completed Raejean Perraut [facility] 04/14/2017 10:20:12 7 Allergy Injection completed Raejean Perraut [facility] 04/07/2017 08:44:04 7 Allergy Injection completed Arianna Minix [facility] 04/01/2017 12:17:49 7 Allergy Injection completed Arianna Minix [facility] 03/26/2017 08:49:30 7 Vial Preparation completed Arianna Minix [facility] 03/17/2017 10:31:13 7 Allergy Injection completed Arianna Minix [facility] [facility] 03/17/2017 09:01:34 7 Allergy Injection completed Ioana Celena [facility] 03/03/2017 09:07:41 7 Allergy Injection completed Arianna Minix [facility] 02/26/2017 08:57:51 7 Allergy Injection completed Arianna Minix [facility] 02/17/2017 08:36:14 7 Allergy Injection completed Raejean Perraut [facility] 02/12/2017 12:42:11 7 Allergy Injection completed Ioana Celena [facility] 01/27/2017 08:36:57 7 Allergy Injection completed Arianna Minix [facility] 01/22/2017 08:22:06 7 Allergy Injection completed Raejean Perraut [facility] 01/15/2017 15:32:40 7 Allergy Injection completed Arianna Minix [facility] 12/30/2016 09:06:18 7 Allergy Injection completed Arianna Minix [facility] 12/23/2016 08:42:04 7 Allergy Injection completed Raejean Perraut [facility] 12/16/2016 08:40:27 7 Allergy Injection completed Ioana Celena [facility] 12/11/2016 08:50:57 7 Vial Preparation completed Arianna Minix [facility] 12/02/2016 11:53:43 7 Allergy Injection completed Raejean Perraut [facility] 11/27/2016 08:51:08 7 Allergy Injection completed Arianna Minix [facility] 11/18/2016 08:38:35 7 Allergy Injection completed Arianna Minix [facility] 11/11/2016 08:38:43 7 Allergy Injection completed Raejean Perraut [facility] 11/04/2016 08:39:36 7 Allergy Injection completed Arianna Minix [facility] 10/30/2016 08:41:17 7 Allergy Injection completed Raejean Perraut [facility] 10/21/2016 08:34:01 7 Allergy Injection completed Ioana Celena [facility] 10/14/2016 08:30:03 7 Allergy Injection completed Ioana Celena [facility] 10/07/2016 08:29:14 7 Allergy Injection completed Arianna Minix [facility] 09/30/2016 08:28:38 7 Allergy Injection completed Raejean Perraut [facility] 09/22/2016 13:31:34 7 Vial Preparation completed Dallas Samuelraut [facility] 09/09/2016 14:04:25 7 Allergy Injection completed Ioana Celena [facility] 09/08/2016 12:24:16 6 Allergy Injection completed Arianna Minix [facility] 08/12/2016 08:39:33 6 Allergy Injection completed Ioana Celena [facility] 08/05/2016 10:14:43 5 Repair of nasal septum completed Felix Zepeda [facility] 09/22/2016 15:34:06 0 Other completed [facility] 07/14/2018 16:25:51 6 [place] Teeth Extraction completed [facility] 07/14/2018 16:26:20 Imaging Results None recorded. Procedure Notes None recorded. Medical Equipment None Reported. Allergies No known drug allergies Medications Name Sig Start Date Stop Date Status Note LastModified by Organization Details LastModified Time Tussin DM 10 mg-100 mg/5 mL oral syrup active Not Available Not Available Not Available promethaz ine-DM 6.25 mg-15 mg/5 mL oral syrup 11/02 completed Not Available Not Available Not Available prednison e 10 mg tablet active Not Available Not Available Not Available azithromy aric 250 mg tablet active Not Available Not Available No t Available sulfameth oxazole 400 mg-trimet hoprim 80 mg tablet 01/24 completed Not Available Not Available Not Available promethaz ine 12.5 mg tablet 11/02 completed Not Available Not Available Not Available ciproflox acin 250 mg tablet active Not Available Not Available No t Available ciproflox acin 500 mg tablet 01/24 completed Not Available Not Available Not Available sulfameth oxazole 800 mg-trimet hoprim 160 mg tablet 11/02 completed Not Available Not Available Not Available oxycodone -acetamin ophen 5 mg-325 mg tablet 11/02 completed Not Available Not Available Not Available terbinafi ne HCl 250 mg tablet active Not Available Not Available Not Available cephalexi n 500 mg capsule 01/24 completed Not Available Not Available Not Available oseltamiv ir 75 mg capsule active Not Available Not Available Not Available methylpre dnisolone 4 mg tablets in a dose pack 11/02 completed Not Available Not Available Not Available cefdinir 300 mg capsule 11/02 completed Not Available Not Available Not Available fluticaso ne propionat e 50 mcg/actua tion nasal spray,dolores pension Two times a day 11/02 completed Instruct ions: 2 sprays each nostril BID, angling the tip of the applicat or towards the top of the ear on the same side.;Fr equency: bid;Medi cation Descript ion: fluticas one nasal; Dosage:2 sprays; Route:na charlotte; refills: 11; Quantity :1 spray Not Available Not Available Not Available amoxicill in 500 mg-potass ium clavulana te 125 mg tablet active Not Available Not Available Not Available hydroxyzi ne pamoate 25 mg capsule active Not Available Not Available Not Available neomycin- polymyxin -hydrocor t 3.5 mg-10,000 unit/mL-1 % ear drops,dolores p 11/02 completed Not Available Not Available Not Available Ortho Tri-Cycle n LO (28) 0.18 mg/0.215 mg/0.25 mg-25 mcg tablet 01/24 completed Medicati on Descript ion: ethinyl estradio l-norges timate; Route:or al; refills: 0 Not Available Not Available Not Available Tri-Sprin peña (28) 0.18 mg(7)/0.2 15 mg(7)/0.2 5 mg(7)-0.0 35 mg tablet active Not Available Not Available Not Available metoprolo l tartrate 25 mg tablet active Not Available Not Available Not Available Mucinex D 60 mg-600 mg tablet,ex tended release 11/02 completed Not Available Not Available Not Available promethaz ine 11/02 completed Medicati on Descript ion: prometha zine; refills: 0 Not Available Not Available Not Available Cephalexi n Monohydra te 11/02 completed Medicati on Descript ion: cephalex in; Route:or al; refills: 0 Not Available Not Available Not Available Xyzal 5 mg tablet Daily 11/02 completed Duration : 30 days;Leonard quency: daily;Me dication Descript ion: levoceti rizine; Dosage:1 ; Route:or al; refills: 12; Quantity :30 tablet Not Available Not Available Not Available EpiPen 2-Tonny 0.3 mg/0.3 mL injection , auto-inje ctor As Directed 2015 active Duration : 30 days;Leonard quency: as direct.; Alt Frequenc y: prn;Medi cation Descript ion: epinephr ine; Dosage:a s directed ; Route:in jectable ; refills: 12; Quantity :1 kit Not Available Not Available Not Available Vitals Date Recorded Body height Body mass index (BMI) Body weight Body temperature Heart rate Systolic And Diastolic Provider Name and Address Organization Details Last Updated DateTime 9 167.64 cm 17.3 kg/m2 09812.7 8 g 98.1 [degF] 55 /min 125/74 mm[Hg] Avril Gonzalez [facility] 9 10:28:32 Social History Question Answer Notes LastModified by Organizat ion Details LastModified Time Tobacco Smoking Status Never Smoker Felix remy [facility] 09/22/2016 15:33:40 Marital Status Informatio n not available 07/14/2018 What Was The Date Of Your Most Recent Tobacco Screening? 01/24/2019 Information n ot available 10/11/2019 Sex: Unknown Functional Status Question Answer Note LastModified by Organizat ion Details LastModified Time What is your level of alcohol consumption? 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 Family History Relationship Description Onset Age of this Age Resolved Age Notes LastModified by Organization Details LastModified Time Father No current problems or disability asalva Not available 09/22 15:33:33 Mother No current problems or disability asalva Not available 09/22 15:33:33 Medical History Condition Response Anesthesia Complications N Cancer N Allergies/Hayfever Diabetes N Bleeding Disorder N Hypertension N Gynecological HistoryNo gynecological history recorded. Obstetrics History GPAL:G 0 P 0 0 0 0 Past Encounters Encounter ID Performer Location Encounter Start Date Encounter Closed Date Diagnosis/Indication Diagnosis SNOMED-CT Code Diagnosis ICD10 Code Diagnosis IMO Codes Diagnosis Note [id number] MD KILEY LIMA [facility] [address] [place] [id number] 08/05/2016 08:48:19 08/05/2016 09:14:12 [id number] MD KILEY BRASHER [facility] [address] [place] [address] 08/12/2016 08:25:01 08/12/2016 08:41:42 [id number] MD KILEY MOE [facility] [address] [place] [id number] 09/08/2016 12:11:15 09/08/2016 12:24:59 [id number] MD KILEY TRONCOSO III [facility] [address] [place] [address] 09/09/2016 12:31:29 09/09/2016 14:33:22 [id number] MD KILEY LÓPEZ [facility] [address] [place] [address] 09/22/2016 12:30:00 09/22/2016 14:40:27 [id number] MD KILEY LÓPEZ [facility] [address] [place] [address] 09/22/2016 14:53:59 09/22/2016 16:33:00 Allergic rhinitis caused by pollen 77949211 J30.1 on weekly ; will go to qowk on vial#1 and continue escalating vial #2 Hypertroph y of nasal turbinates 35528308 J34.3 status post Septoplast y, Repair Left Alar Stenosis (closed), Bilateral SMR Inferior Turbinates Deviated nasal septum 12 1599171 J34.2 status post Septoplast y, Repair Left Alar Stenosis (closed), Bilateral SMR Inferior Turbinates Dysfunctio n of eustachian tube 61840985 H69.93 [id number] MD KILEY BRASHER [facility] [address] [place] [address] 09/30/2016 08:20:21 09/30/2016 08:29:13 [id number] MD KILEY BRASHER [facility] [address] [place] [address] 10/07/2016 08:20:55 10/07/2016 08:32:53 [id number] MD KILEY BRASHER [facility] [address] [place] [address] 10/14/2016 08:19:32 10/14/2016 08:30:55 [id number] MD KILEY BRASHER [facility] [address] [place] [address] 10/21/2016 08:23:39 10/21/2016 08:34:51 [id number] MD KILEY LÓPEZ [facility] [address] [place] [address] 10/30/2016 08:32:12 10/30/2016 08:42:03 [id number] MD KILEY BRASHER [address] [address] [place] [address] 11/04/2016 08:30:02 11/04/2016 08:40:27 [id number] MD KILEY BRASHER [address] [address] [place] [address] 11/11/2016 08:29:21 11/11/2016 08:39:34 [id number] MD KILEY BRASHER [address] [place] [address] 11/18/2016 08:30:54 11/18/2016 08:39:41 [id number] MD KILEY MOE [address] [place] [address] 11/27/2016 08:36:57 11/27/2016 08:51:55 [id number] MD KILEY BRASHER [address] [place] [address] 12/02/2016 09:33:41 12/02/2016 11:54:30 [id number] MD KILEY MOE [address] [place] [address] 12/11/2016 08:21:37 12/11/2016 08:53:14 [id number] MD KILEY BRASHER [address] [place] [address] 12/16/2016 08:22:06 12/16/2016 08:41:18 [id number] MD KILEY BRASHER [address] [place] [address] 12/23/2016 08:29:57 12/23/2016 08:42:55 [id number] MD KILEY BRASHER [address] [place] [address] 12/30/2016 08:47:14 12/30/2016 09:07:09 [id number] MD KILEY MOE [facility]NT [address] [place] [address] 01/15/2017 15:22:52 01/15/2017 15:34:44 [id number] MD KILEY BRASHER [address] [address] [place] [address] 01/22/2017 08:19:03 01/22/2017 08:22:42 [id number] MD KILEY BRASHER [address] [address] [place] [address] 01/27/2017 08:19:18 01/27/2017 08:38:42 [id number] MD KILEY MOE [facility] [address] [place] [address] 02/12/2017 12:23:09 02/12/2017 12:43:07 [id number] MD KILEY BRASHER [address] [address] [place] [address] 02/17/2017 08:30:54 02/17/2017 08:36:49 [id number] MD KILEY MOE [address] [address] [place] [address] 02/26/2017 08:35:59 02/26/2017 08:59:05 [id number] MD KILEY BRASHER [facility] [address] [place] [address] 03/03/2017 08:35:31 03/03/2017 09:08:46 [id number] MD KILEY BRASHER [address] [address] [place] [address] 03/17/2017 08:27:58 03/17/2017 09:02:18 [id number] MD KILEY BRASHER [address] [address] [place] [address] 03/17/2017 08:54:04 03/17/2017 10:31:55 [id number] ABHIJIT YOUNG [address] [address] [place] [address] 03/26/2017 08:30:40 03/26/2017 08:53:57 [id number] MD KILEY LIMA [facility]NT [address] [place] [address] 04/01/2017 12:03:26 04/01/2017 12:18:22 [id number] MD KILEY BRASHER [address] [address] [place] [address] 04/07/2017 08:35:43 04/07/2017 08:45:12 [id number] MD KILEY BRASHER [address] [address] [place] [address] 04/14/2017 10:06:32 04/14/2017 10:21:02 [id number] ABHIJIT YOUNG [address]NT [address] [place] [address] 04/24/2017 12:31:43 04/24/2017 12:47:56 [id number] MD KILEY BRASHER [address] [place] [address] 06/09/2017 09:13:59 06/09/2017 14:39:00 [id number] MD KILEY LIMA [address] [place] [address] 06/10/2017 11:21:46 06/10/2017 11:31:11 [id number] MD KILEY LÓPEZ [address] [place] [address] 11/02/2017 15:07:03 11/02/2017 16:19:47 Allergic rhinitis caused by pollen 70757379 J30.1 -MQT 01/17/15= class III reaction to dust, class III- reaction to grasses, and class III reaction to weeds -started allergy injections 01/2015 -decrease allergy shots to every 3 weeks 10/2017 Hypertroph y of nasal turbinates 38173425 J34.3 status post Septoplast y, Repair Left Alar Stenosis (closed), Bilateral SMR Inferior Turbinates Deviated nasal septum 12 8443051 J34.2 status post Septoplast y, Repair Left Alar Stenosis (closed), Bilateral SMR Inferior Turbinates Dysfunctio n of eustachian tube 53261207 H69.93 [id number] MD KILEY MOE [facility]NT [address] [place] [address] 11/05/2017 16:01:22 11/05/2017 16:15:44 [id number] MD KILEY LIMA [facility]NT [address] [place] [address] 11/11/2017 12:03:31 11/11/2017 12:08:17 [id number] MD KILEY MOE [facility]NT [address] [place] [address] 11/19/2017 12:17:35 11/19/2017 13:06:47 [id number] MD KILEY MOE [address] [place] [address] 11/26/2017 12:06:37 11/26/2017 12:12:57 [id number] MD KILEY MOE [address] [place] [address] 12/03/2017 11:56:23 12/03/2017 12:27:12 [id number] MD KILEY BRASHER [facility]NT [address] [place] [address] 12/08/2017 08:49:22 12/08/2017 12:02:52 [id number] MD KILEY LÓPEZ ENT [address] [place] [address] 12/10/2017 12:01:10 12/10/2017 12:29:46 [id number] MD KILEY TRONCOSO III ENT [address] [place] [address] 12/22/2017 12:00:03 12/22/2017 12:26:28 [id number] MD KILEY TRONCOSO III [facility] [address] [place] [address] 01/01/2018 15:43:54 01/01/2018 16:07:52 [id number] MD KILEY OME [facility]NT [address] [place] [address] 01/14/2018 12:59:05 01/14/2018 13:08:51 [id number] MD KILEY MOE ENT [address] [place] [address] 01/28/2018 12:51:50 01/28/2018 13:12:45 [id number] MD KILEY MOE ENT [address] [place] [address] 02/11/2018 12:40:53 02/11/2018 12:48:38 [id number] MD KILEY LÓPEZ ENT [address] [place] [address] 03/01/2018 12:16:00 03/01/2018 12:22:01 [id number] MALINDA DILLON APRN [place] [facility] [address] [place] [address] 03/19/2018 12:23:02 03/19/2018 12:31:16 [id number] MD KILEY TRONCOSO III [facility] [address] [place] [address] 04/02/2018 10:09:14 04/02/2018 10:14:57 [id number] IRVING ANDERSON III, [place] [facility] [address] [place] [address] 04/16/2018 12:28:47 04/16/2018 12:30:55 [id number] MD KILEY LIMA [facility]NT [address] [place] [address] 04/28/2018 15:07:54 04/28/2018 15:22:24 [id number] MD KIELY LIMA [facility]NT [address] [place] [address] 05/12/2018 14:14:41 05/12/2018 14:23:47 [id number] MD KILEY LÓPEZ [address] [place] [place] [address] 05/26/2018 13:45:31 05/26/2018 14:02:21 [id number] MD KILEY BRASHER ENT [address] [place] [address] 7 06/08/2018 13:04:09 06/08/2018 16:39:46 [id number] MD KILEY MOE [address] [place] [address] 7 06/10/2018 08:22:31 06/10/2018 09:26:34 [id number] MD KILEY LÓPEZ [address] [place] [address] 7 06/21/2018 14:55:18 06/21/2018 15:02:56 [id number] MD KILEY MOE [address] 7 07/05/2018 12:28:11 07/05/2018 12:39:23 [id number] RICKY CHARLES MD [facility] [address] [place] [address] 07/14/2018 15:39:40 07/14/2018 16:28:52 Urolithiasis [id number] N20.9 Follow-up in 3 months in [place] with a KUB [id number] MD KILEY LÓPEZ ENT [address] [place] [address] 07/19/2018 12:16:53 07/19/2018 12:34:59 [id number] MD KILEY LÓPEZ ENT [address] [place] [address] 08/02/2018 12:04:36 08/02/2018 12:16:03 [id number] MD KILEY TRONCOSO III [address] [place] [address] 08/13/2018 12:10:38 08/13/2018 12:33:26 [id number] MD KILEY LIMA [address] [place] [address] 08/25/2018 11:58:58 08/25/2018 14:16:33 [id number] MD KILEY LIMA ENT [address] [place] [address] 09/08/2018 12:04:48 09/08/2018 12:10:20 [id number] MD KILEY LIMA [address] [place] [address] 09/22/2018 11:57:00 09/22/2018 12:04:35 [id number] MD KILEY TRONCOSO III [address] [place] [address] 10/08/2018 14:44:01 10/08/2018 14:51:24 [id number] MONY JESSIKA, MD [place] [facility] [address] [place] [address] 10/21/2018 13:59:45 10/21/2018 14:14:55 [id number] MD KILEY TRONCOSO III ENT [address] [place] [address] 11/26/2018 16:14:42 11/26/2018 16:22:04 [id number] BRANDON DHILLON APRN [place] [facility] [address] [place] [address] 12/17/2018 12:29:52 12/17/2018 12:36:56 [id number] MD KILEY BRASHER ENT [address] [place] [address] 12/28/2018 09:04:49 12/28/2018 11:56:27 [id number] MD KILEY TRONCOSO III ENT [address] [place] [address] 12/31/2018 15:03:24 12/31/2018 15:22:51 [id number] MD KILEY LÓPEZ ENT [address] [place] [address] 01/24/2019 10:18:01 01/24/2019 13:44:59 Allergic rhinitis caused by pollen [id number] J30.1 -MQT 01/17/15= class III reaction to dust, class III- reaction to grasses, and class III reaction to weeds -started allergy injections 01/2015 -decrease allergy shots to every 3 weeks 01/2019 Hypertroph y of nasal turbinates [id number] J34.3 status post Septoplast y, Repair Left Alar Stenosis (closed), Bilateral SMR Inferior Turbinates [id number] MD KILEY LÓPEZ ENT [address] [place] [address] 01/24/2019 10:58:15 01/24/2019 10:59:50 [id number] ESSENCE DALEY MD [place] [facility] [address] [place] [address] 03/02/2019 15:20:12 03/02/2019 15:32:58 [id number] MD KILEY LÓPEZ ENT [address] [place] [address] 03/21/2019 10:53:56 03/21/2019 11:17:32 Health Concerns Section Related Observation LastModified by Organization Detai ls LastModified Time None Recorded Concern Status LastModified by Organization Details LastModified Time None Recorded Advance Directives Directive None Recorded Payers Insurance Date Sequence Insurance Name Policy Number Policy Michaud Covered Member ID Michaud Member ID Guarantor Name 2019 1 [employer] [id number] Jaiden Orozco [id number] Lena Orozco Notes Date Note Type Note Provider Name and Address Organization Details Recorded Time 01/24/2019 text/html Lena returns today for routine allergy follow up. She began immunotherapy treatment back in January 2015. She is currently getting her injections every 2 weeks, and is set to taper her injections to every 3 weeks. She is also using Mucinex D when needed which is rare along with Clear Eyes eye drops. She is not using allergy nasal sprays or saline rinse. She has not had any acute sinus infections in the past 12 months. She is status post Septoplasty, repair left alar stenosis, and bilateral SMR of inferior turbinates from 07/13/15, and breathing freely through the nose. Lena is doing quite well overall with no new concerns. LEAH DALLAS MD [facility] [place], [address], [place] [facility] 01/24/2019 12:33:05 OBGyn Episode No OBEpisode recorded.
== END 2025-06-14 23:59 | disposition home or self-care (01) ==
LOC: RAD 14:19
PROVIDERS: PCP Internal Medicine; Visit Provider Internal Medicine
DX: R04.2 Hemoptysis (principal); J20.9 Acute bronchitis, unspecified; J06.9 Acute upper respiratory infection, unspecified; M41.9 Scoliosis, unspecified
CPT/HCPCS: 71046

== ENCOUNTER 2025-08-09 16:07 | Emergency (ER) | payer OTHER, SELFPAY ==
--- NOTE | 2025-08-09 16:10 | ED_ITS ---
Discharge Plan Disposition Patient Disposition: Home, Self-Care Condition: Good Prescriptions Prescriptions: No Action azithromycin 250 mg tablet See Rx Instructions PO .COMPLEX Qty: 6 0RF Rx Instructions: For 250 mg dose pack: take 500 mg today (day 1), then 250 mg for 4 days (days 2-5) PO methylprednisolone 4 mg tablets,dose pack See Rx Instructions PO PER PKG DIR Qty: 21 0RF Rx Instructions: PO PER PKG DIR Referrals Follow up/Referrals: Frandy Manzanares MD [Primary Care Provider, Medical] - See instructions Activity Restrictions/Add. Instructions Additional Instructions/Restrictions: You were evaluated in the emergency department today. At this time, your potassium is slightly low, so we gave you oral replacement. Otherwise, your workup is reassuring. It is unclear what exactly is causing your symptoms, but it could be related to anxiety or indigestion. Please follow-up very closely with your primary care provider over the next week for reassessment and to make sure that you are still doing well. Return to the emergency department right away for new or worsening symptoms. Clinical Impressions Clinical Impression: Chest heaviness, Hypokalemia Stand Alone Forms Stand Alone Forms: Work/School Release Instructions Patient Instructions: DI for Atypical Chest Pain Print Language Print Language: [place] Zealander Discharge ED Provider: Michelle Beasley General Adult HPI <Dior Jason - Last Filed: 08/09/25 16:11> General Chief complaint: Chest Pain Stated complaint: chest discomfort Time Seen by Provider: 08/09/25 16:10 Related Data Previous Rx's ?Medication ?Instructions ?Recorded azithromycin 250 mg tablet See Rx Instructions PO .COM PLEX #6 06/14/25 tabs methylprednisolone 4 mg tablets in See Rx Instructions PO PER PKG DIR 06/14/25 a dose pack #21 tabs Allergies Allergy/AdvReac Type Severity Reaction Status Date / Time No Known Allergies Allergy Verified 06/14/25 14:03 <Michelle Beasley DO - Last Filed: 08/09/25 21:11> History of Present Illness HPI narrative: This patient is a 39-year-old female with a history of who denies significant past medical history presenting to the emergency department for evaluation with concern for chest heaviness. Patient reports that for the last several days, she has had intermittent sensation of heaviness in her chest. Nothing seems to bring it on, it seems to happen randomly. Nothing makes it better or worse. She does note that she had indigestion yesterday, but has not experienced any today. She also notes that she had a recent URI with cough, but the cough has improved. She denies any fevers, sore throat, abdominal pain, nausea, vomit, changes to bowel movements, leg pain or swelling. She also denies any history of hormonal medication use, long travel, recent surgery, immobilization, or history of blood clot or clotting disorder. [facility] <Dior Gutierrescarmela - Last Filed: 08/09/25 16:11> [facility] Disclaimer: The information contained in this section may have been updated after the patient was seen, as this information can be updated by other users. Medical History Urinary tract infection Social History Smoking Status: Never smoker alcohol intake: never current occupational status: other Travel in the last 8 weeks?: None household members: other housing: other Have you lived/traveled outside US in past 30 days?: No Contact w/someone who lives/traveled outside US past 30 days?: No Exposure to someone with infectious disease in past 14 days?: No Do you have a fever (greater than 100.4 F or 38 C)?: No Have you tested positive for COVID-19?: No Exposed to someone with COVID-19 in past 14 days?: No Do you have a sore throat?: No Do you have a cough?: No Do you have any weakness?: No Do you have any diarrhea?: No Are you experiencing any unusual bleeding?: No Do you have any muscle aches/pain?: No Do you have any abdominal pain?: No Are you experiencing loss of taste or smell?: No Other Medical History Have you received the Flu Vaccine for this season: Yes Have you received the Pneumonia Vaccine: No <Michelle Beasley DO - Last Filed: 08/09/25 21:11> ROS Obtained: Yes All systems reviewed & no additional complaints except as documented Physical Exam <Michelle Beasley DO - Last Filed: 08/09/25 21:11> General General appearance: alert and in no apparent distress Head Head exam: atraumatic and normocephalic Eye Eye exam: Present normal appearance, PERRL and EOMI ENT ENT exam: Present normal exam, normal oropharynx, mucous membranes moist and normal external ear exam Neck Neck exam: Present normal inspection, full ROM and trachea midline; Absent tenderness Chest Chest inspection: Present normal inspection and symmetric chest wall rise; Absent tenderness Respiratory Respiratory exam: Present normal lung sounds bilaterally; Absent respiratory distress, wheezes, stridor or accessory muscle use Cardiovascular Cardiovascular exam: Present regular rate and normal rhythm Abdominal Exam Abdominal exam: Present soft; Absent distention, tenderness or guarding Extremities Exam Extremities exam: Present normal inspection, full ROM and normal capillary refill; Absent tenderness or edema Back Exam Back exam: Present normal inspection and full ROM; Absent tenderness Neurological Exam Neurological exam: Present alert, oriented X3, CN II-XII intact and normal gait; Absent motor sensory deficit Psychiatric Psychiatric exam: Present normal affect and normal mood Skin Skin exam: Present warm and dry Medical Decision Making <Diorjeny Jason - Last Filed: 08/09/25 16:11> Medical Records Screening: Per USPSTF and CDC recommendations, given the prevalence of disease in our region, it is our hospital?s policy to screen for HIV and viral Hepatitis for all patients aged 18 and over and those with ongoing risk factors. Vital Signs: 08/09/25 16:16 08/09/25 16:30 08/09/25 17:00 Temperature 98.2 F Temperature Source Oral Pulse Rate 88 91 H Pulse Rate [Right Radial] 115 H Respiratory Rate 20 10 L 10 L Blood Pressure 140/95 H 143/98 H Blood Pressure [Right Arm] 173/100 H Blood Pressure Mean [Right Arm] 124 Blood Pressure Source Blood Pressure Source [Right Arm] Automatic Cuff Blood Pressure Position Blood Pressure Position [Right Arm] Sitting 02 Sat by Pulse Oximetry 100 100 100 Oxygen Delivery Method Room Air Room Air 08/09/25 17:47 08/09/25 17:47 Temperature 98.3 F Temperature Source Oral Pulse Rate 88 88 Pulse Rate [Right Radial] Respiratory Rate 14 Blood Pressure 151/84 H Blood Pressure [Right Arm] Blood Pressure Mean [Right Arm] Blood Pressure Source Automatic Cuff Blood Pressure Source [Right Arm] Blood Pressure Position Sitting Blood Pressure Position [Right Arm] 02 Sat by Pulse Oximetry Oxygen Delivery Method Room Air Lab Data Lab Results 08/09/25 16:20: WBC 5.7, RBC 4.75, Hgb 14.0, Hct 41.1, MCV 86.5, MCH 29.5, MCHC 34.1, RDW 11.9, Plt Count 270, MPV 9.0, Neut % (Auto) 53.2, Lymph % (Auto) 34.7, [place] % (Auto) 9.9 H, Eos % (Auto) 0.9, Baso % (Auto) 1.0, Neut # (Auto) 3.0, Lymph # (Auto) 2.0, [place] # (Auto) 0.6, Eos # (Auto) 0.1, Baso # (Auto) 0.1, D- Dimer 0.51 H, Sodium 140, Potassium 3.3 L, Chloride 102, Carbon Dioxide 28, Anion Gap 13.3, BUN 14, Creatinine 0.80, Estimated Creat Clear 81, Estimated GFR 80, Est GFR ( Amer) 97, Glucose 110 H, Calcium 9.8, Total Bilirubin 0.8, AST 36, ALT 22, Alkaline Phosphatase 64, Troponin I < 0.01, Total Protein 8.5 H, Albumin 5.2 H, Globulin 3.3 H, Albumin/Globulin Ratio 1.6, TSH 1.22, Thyroxine (T4) 8.2, Serum HCG, Qual Negative 08/09/25 16:20 08/09/25 16:20 Orders (Tests/Meds): ED MEDICATIONS Discontinued Medications Generic Name Dose Route Start Last Admin Trade Name Freq PRN Reason Stop Dose Admin Potassium Chloride 40 meq 08/09/25 17:23 08/09/25 17:46 Potassium Chloride 20meq Tab PO 08/09/25 17:24 40 meq ONCE ONE Administration ORDERS Category Date Time Status CXR 2 view (NOT portable) [XR chest 2V] Stat Exams 08/09/25 16:23 Completed Complete Blood Count Auto Diff Stat Lab 08/09/25 16:20 Completed Comprehensive Metabolic Panel Stat Lab 08/09/25 16:20 Completed D-Dimer Stat Lab 08/09/25 16:20 Completed HCG Qualitative, Serum Stat Lab 08/09/25 16:20 Completed T4 (Thyroxine) Stat Lab 08/09/25 16:20 Completed TSH [Thyroid Stimulating Hormone] Stat Lab 08/09/25 16:20 Completed Trop I [Troponin I] Stat Lab 08/09/25 16:20 Completed Aristeo Beasley, DO - Last Filed: 08/09/25 21:11> Medical Records Medical records reviewed: Yes I reviewed the patient's medical records. Darion Inquiry Pt receiving controlled substance: No Vital Signs: 08/09/25 16:16 08/09/25 16:30 08/09/25 17:00 Temperature 98.2 F Temperature Source Oral Pulse Rate 88 91 H Pulse Rate [Right Radial] 115 H Respiratory Rate 20 10 L 10 L Blood Pressure 140/95 H 143/98 H Blood Pressure [Right Arm] 173/100 H Blood Pressure Mean [Right Arm] 124 Blood Pressure Source Blood Pressure Source [Right Arm] Automatic Cuff Blood Pressure Position Blood Pressure Position [Right Arm] Sitting 02 Sat by Pulse Oximetry 100 100 100 Oxygen Delivery Method Room Air Room Air 08/09/25 17:47 08/09/25 17:47 Temperature 98.3 F Temperature Source Oral Pulse Rate 88 88 Pulse Rate [Right Radial] Respiratory Rate 14 Blood Pressure 151/84 H Blood Pressure [Right Arm] Blood Pressure Mean [Right Arm] Blood Pressure Source Automatic Cuff Blood Pressure Source [Right Arm] Blood Pressure Position Sitting Blood Pressure Position [Right Arm] 02 Sat by Pulse Oximetry Oxygen Delivery Method Room Air Lab Data Lab results reviewed: Yes I reviewed the patient's lab results. Lab Results 08/09/25 16:20: WBC 5.7, RBC 4.75, Hgb 14.0, Hct 41.1, MCV 86.5, MCH 29.5, MCHC 34.1, RDW 11.9, Plt Count 270, MPV 9.0, Neut % (Auto) 53.2, Lymph % (Auto) 34.7, [place] % (Auto) 9.9 H, Eos % (Auto) 0.9, Baso % (Auto) 1.0, Neut # (Auto) 3.0, Lymph # (Auto) 2.0, [place] # (Auto) 0.6, Eos # (Auto) 0.1, Baso # (Auto) 0.1, D- Dimer 0.51 H, Sodium 140, Potassium 3.3 L, Chloride 102, Carbon Dioxide 28, Anion Gap 13.3, BUN 14, Creatinine 0.80, Estimated Creat Clear 81, Estimated GFR 80, Est GFR ( Amer) 97, Glucose 110 H, Calcium 9.8, Total Bilirubin 0.8, AST 36, ALT 22, Alkaline Phosphatase 64, Troponin I < 0.01, Total Protein 8.5 H, Albumin 5.2 H, Globulin 3.3 H, Albumin/Globulin Ratio 1.6, TSH 1.22, Thyroxine (T4) 8.2, Serum HCG, Qual Negative Orders (Tests/Meds): ED MEDICATIONS Discontinued Medications Generic Name Dose Route Start Last Admin Trade Name Freq PRN Reason Stop Dose Admin Potassium Chloride 40 meq 08/09/25 17:23 08/09/25 17:46 Potassium Chloride 20meq Tab PO 08/09/25 17:24 40 meq ONCE ONE Administration ORDERS Category Date Time Status CXR 2 view (NOT portable) [XR chest 2V] Stat Exams 08/09/25 16:23 Completed Complete Blood Count Auto Diff Stat Lab 08/09/25 16:20 Completed Comprehensive Metabolic Panel Stat Lab 08/09/25 16:20 Completed D-Dimer Stat Lab 08/09/25 16:20 Completed HCG Qualitative, Serum Stat Lab 08/09/25 16:20 Completed T4 (Thyroxine) Stat Lab 08/09/25 16:20 Completed TSH [Thyroid Stimulating Hormone] Stat Lab 08/09/25 16:20 Completed Trop I [Troponin I] Stat Lab 08/09/25 16:20 Completed ECG Data Tracing #1: I reviewed this ECG and interpreted as documented below: I independently interpreted EKG at 1617 and noted sinus tachycardia with a ventricular rate of 100 bpm. Incomplete right bundle branch block. No acute ST changes concerning for STEMI ECG initial impression date: 08/09/25 ECG initial impression time: 16:17 HEART Score History (anamnesis): Slightly suspicious ECG: Normal Age: <45 years Risk factors: No known risk factors Troponin: </= normal limit HEART Score: 0 Medical Decision Narrative: In summary, this patient is a 39-year-old female presenting to the Emergency Department for evaluation of chest heaviness. Differential diagnoses considered include but are not limited to ACS, GERD, costochondritis, pleurisy, pneumonia, viral syndrome, anxiety, PE. Ruling out the most morbid conditions drove assessment. On exam, the patient is sitting upright in no distress. She is slightly anxious appearing. cardiopulmonary exam is reassuring. She is mildly hypertensive and tachycardic, but otherwise vitals are reassuring. Cannot use PERC criteria to exclude PE given that the patient is mildly tachycardic. Workup included CBC, CMP, troponin, TSH, T4, D-dimer, chest x-ray, EKG. patient declines need for medication for discomfort at this time.. EKG obtained is reassuring On reassessment, the patient is lying in bed in no distress and states she is feeling better. Heart rate and tachycardia hypertension have improved after she is calm down, suggesting that it could be related to anxiety. D-dimer is negative per years criteria. CBC is reassuring with no significant leukocytosis or anemia. Chemistry demonstrates mild hypokalemia for which oral repletion was ordered. No other acute concerning findings noted. I independently interpreted x-ray prior to radiology read and noted no large focal consolidation concerning for pneumonia, no pneumothorax. Ultimately, workup is been reassuring and heart score is 0, so I feel the patient is appropriate for discharge with close PCP follow-up for low risk chest pain. Strict return precautions given Critical Care <Michelle Beasley, DO - Last Filed: 08/09/25 21:11> Critical Care Time Critical Care Time: No
--- NOTE | 2025-08-09 16:15 | ECG_ITS ---
APPROVED REPORT Exam: Resting ECG HR:100 bpm ECG Measurements Heart Rate 100 AXES MA 128 P 74 QRSd 90 QRS 79 QT 329 T 50 QTc 386 Conclusion SINUS TACHYCARDIA POSSIBLE RIGHT VENTRICULAR CONDUCTION DELAY [RSR (QR) IN V1/V2] inferior st depressions noted ABNORMAL RHYTHM ECG UNCONFIRMED REPORT Electronically signed by : MORE STANLEY, 08/11/2025 07:00:51
[2025-08-09 16:16] VITALS: BP 173/100; PULSE 115; RESP 20; TEMP 36.8; O2SAT 100; BMI 20.5
--- NOTE | 2025-08-09 16:16 | ECG_ITS ---
APPROVED REPORT Exam: Resting ECG HR:126 bpm ECG Measurements Heart Rate 126 AXES TN 132 P 77 QRSd 91 QRS 80 QT 336 T -29 QTc 410 Conclusion SINUS TACHYCARDIA POSSIBLE RIGHT VENTRICULAR CONDUCTION DELAY [RSR (QR) IN V1/V2] ST DEVIATION AND MODERATE T-WAVE ABNORMALITY, CONSIDER ANTEROLATERAL ISCHEMIA [-0.1+ mV T-WAVE IN V3-V6] ABNORMAL ECG UNCONFIRMED REPORT Electronically signed by : MORE STANLEY, 08/11/2025 07:01:44
--- NOTE | 2025-08-09 16:23 | XR_ITS ---
PROCEDURE INFORMATION: Exam: XR Chest Exam date and time: 08/09/2025 4:44 PM Age: 39 years old Clinical indication: Pain; Chest pressure; Additional info: Chest pain TECHNIQUE: Imaging protocol: Radiologic exam of the chest. Views: 2 views. COMPARISON: CR XR CHEST 2V 06/14/2025 2:29 PM FINDINGS: Lungs: Clear lungs. Pleural spaces: No pneumothorax or pleural effusion. Heart/Mediastinum: Heart size is normal. Bones/joints: Mild S shaped scoliosis of the thoracolumbar spine. IMPRESSION: No acute findings.
[2025-08-09 16:30] VITALS: BP 140/95; PULSE 88; RESP 10; O2SAT 100
[2025-08-09 16:32] LABS: Hematocrit 41.1 % (37.0-47.0); Hemoglobin 14.0 g/dL (12.2-16.2); Immature Granulocytes % 0.3 %; Mean Corpuscular HGB Conc 34.1 g/dL (31.8-35.4); Mean Corpuscular Hemoglobin 29.5 pg (27.0-31.2); Mean Corpuscular Volume 86.5 fl (81-99); Nucleated Red Blood Cells % 0 %; Platelet Count 270 K/mm3 (142-424); Red Blood Count 4.75 M/mm3 (4.20-5.40); Red Cell Distribution Width-SD 37.8 fL; White Blood Count 5.7 K/mm3 (4.8-10.8)
[2025-08-09 16:42] LABS: HCG Qualitative, Serum Negative (Negative)
[2025-08-09 16:59] LABS: Alanine Aminotransferase 22 U/L (12-78); Albumin Level 5.2 g/dl (3.5-5.0); Albumin/Globulin Ratio 1.6 (1.1-1.8); Alkaline Phosphatase 64 U/L (38-126); Anion Gap 13.3 mEq/L (5-15); Aspartate Amino Transferase 36 U/L (14-36); Bilirubin,Total 0.8 mg/dl (0.2-1.3); Blood Urea Nitrogen 14 mg/dl (7-17); Calcium 9.8 mg/dl (8.4-10.2); Carbon Dioxide 28 mmol/L (22.0-30.0); Chloride 102 mmol/L (98-107); Creatinine Clearance Estimated 81 mL/min (50-200); Creatinine,Serum 0.80 mg/dl (0.52-1.04); Estimated Glomerular Filt Rate 80 ml/min (>60); GFR (African American) 97 ML/MIN (>60); Globulin 3.3 g/dL (1.3-3.2); Glucose 110 mg/dl (74-100); Potassium 3.3 mmoL/L (3.5-5.1); Sodium 140 mmol/L (136-145); Total Protein,Serum 8.5 g/dl (6.3-8.2)
[2025-08-09 17:00] VITALS: BP 143/98; PULSE 91; RESP 10; O2SAT 100
[2025-08-09 17:04] LABS: D-Dimer 0.51 ug/mL (0.0-0.5)
[2025-08-09 17:17] LABS: T4 (Thyroxine) 8.2 ug/dl (5.53-11.0)
[2025-08-09 17:21] LABS: Troponin I < 0.01 ng/ml (0.00-0.034)
[2025-08-09 17:31] LABS: Thyroid Stimulating Hormone 1.22 uIU/mL (0.465-4.68)
[2025-08-09] MEDS: POTASSIUM CHLORIDE 20MEQ TAB 40 MEQ PO (17:46)
[2025-08-09 17:47] VITALS: BP 151/84; PULSE 88; RESP 14; TEMP 36.8; O2SAT 100
== END 2025-08-09 17:50 | disposition home or self-care (01) ==
PROVIDERS: Emergency Provider Emergency Medicine; PCP Internal Medicine
DX: R07.89 Other chest pain (principal); E87.6 Hypokalemia; R00.0 Tachycardia, unspecified
CPT/HCPCS: 71046; 80053; 84436; 84443; 84484; 84703; 85025; 85378; 93005; 99284; 99285